=== PATIENT | female | born 1995 | race Hispanic/Latino ===

== ENCOUNTER 2016-11-01 20:37 | Emergency (ER) | payer SELFPAY ==
[2016-11-01 21:01] VITALS: BP 120/66; PULSE 79; RESP 18; TEMP 98.6; O2SAT 100
--- NOTE | 2016-11-01 21:31 | ED PDOC ---
HPI: Dental Pain/Injury Time Seen by Provider: 11/01/16 21:04 Chief Complaint (Nursing): Dental Pain Chief Complaint (Provider): Swelling of frenulum piercing site History Per: Patient History/Exam Limitations: no limitations Onset/Duration Of Symptoms: Days (7) Current Symptoms Are (Timing): Still Present Additional History Per: Patient Additional Complaint(s): The pt is a 21yo female, presents to ED for evaluation of pain and swelling to frenulum piercing on her tongue. Pt states she has had the piercing for 5 years and never tried to remove it until now. She denies any trauma to the site, denies associated fever or chills. Offers no additional medical complaints. Past Medical History Reviewed: Historical Data, Nursing Documentation, Vital Signs Vital Signs: Last Vital Signs Temp 98.6 F 11/01/16 20:58 Pulse 79 11/01/16 20:58 Resp 18 11/01/16 20:58 BP 120/66 11/01/16 20:58 Pulse Ox 100 11/01/16 20:58 - Medical History PMH: No Chronic Diseases - Surgical History Surgical History: No Surg Hx - Family History Family History: States: Unknown Family Hx - Home Medications Home Medications: Ambulatory Orders Medication Instructions Recorded Amoxicillin/Clavulanate [Augmentin 1 tab PO BID #20 tab 11/01/16 500 MG-125 MG] Fluconazole [Diflucan] 150 mg PO ONCE #1 tab 11/01/16 Naproxen [Naprosyn] 500 mg PO BID PRN #30 tab 11/01/16 - Allergies Allergies/Adverse Reactions: Allergies Allergy/AdvReac Type Severity Reaction Status Date / Time sulfamethoxazole Allergy RASH Verified 11/01/16 21:01 [From Bactrim] trimethoprim [From Bactrim] Allergy RASH Verified 11/01/16 21:01 Review of Systems ROS Statement: Except As Marked, All Systems Reviewed And Found Negative Constitutional: Negative for: Fever ENT: Positive for: Other (swollen site of frenulum piercing) Physical Exam - Reviewed Nursing Documentation Reviewed: Yes Vital Signs Reviewed: Yes - Physical Exam Appears: Positive for: Well, Non-toxic, No Acute Distress Head Exam: Positive for: ATRAUMATIC, NORMAL INSPECTION, NORMOCEPHALIC Skin: Positive for: Normal Color, Warm, DRY Eye Exam: Positive for: EOMI, Normal appearance, PERRL ENT: Positive for: Other (bar piercing noted to frenulum of tongue with mild swelling; moist mucus membranes) Neck: Positive for: Normal Respiratory: Negative for: Respiratory Distress Neurologic/Psych: Positive for: Alert, Oriented - ECG O2 Sat by Pulse Oximetry: 100 (RA) Pulse Ox Interpretation: Normal Medical Decision Making Medical Decision Making: Time: 2128 Impression: Irritated frenulum piercing Plan: -- Verbal consent for piercing removal obtained. Informed if provider is unable to remove piercing, pt has to follow up with a surgeon for further care. Time: 1944 PA was unable to remove piercing. Pt given referrals and advised to follow up for further eval. Pt tolerated procedure well. Case d/w Dr. Elizondo and states pt. can f[place] [facility] [place]. Pt given Rx antibiotics and advised to complete full course. Toradol 15mg IM, Augmentin 500mg PO given. Scribe Attestation: Documented by Ashley Hilliard acting as a scribe for EMILY Vasquez Provider Attestation: All medical record entries made by the Scribe were at my direction and personally dictated by me. I have reviewed the chart and agree that the record accurately reflects my personal performance of the history, physical exam, medical decision making, and the department course for this patient. I have also personally directed, reviewed, and agree with the discharge instructions and disposition. Disposition - Clinical Impression Clinical Impression: Foreign body of tongue - Patient ED Disposition Is Patient to be Admitted: No - Disposition Referrals: [facility] [Outside] Addison Yu MD [Staff Provider] - Melisa Harris DMD [Staff Provider] - Disposition: Routine/Home Disposition Time: 22:10 Condition: STABLE Additional Instructions: FOLLOW UP WITH DR. HARRIS (OMFS) OR DR. YU (ENT) FOR REMOVAL OF PIERCING. RETURN TO ED IF FEVER DEVELOPS OR SYMPTOMS WORSEN. Prescriptions: Amoxicillin/Clavulanate [Augmentin 500 MG-125 MG] 1 tab PO BID #20 tab Fluconazole [Diflucan] 150 mg PO ONCE #1 tab Naproxen [Naprosyn] 500 mg PO BID PRN #30 tab PRN Reason: Pain Instructions: Foreign Body in Pharynx (ED) Forms: [employer] (Danish) Print Language: [place]
[2016-11-01] MEDS ORDERED: Amoxicillin-Clav 500-125 mg Tab PO STA (21:47)
[2016-11-01] MEDS ORDERED: Amoxicillin-Clav 875-125 mg Tab PO ONE (21:52)
[2016-11-01] MEDS ORDERED: Amoxicillin-Clav 875-125 mg Tab PO STA (21:54)
== END 2016-11-01 22:29 | disposition home or self-care (01) ==
LOC: H.ER 20:37
DX: T18.0XXA Foreign body in mouth, initial encounter (principal); X78.8XXA Intentional self-harm by other sharp object, initial encounter; Y93.9 Activity, unspecified
CPT/HCPCS: 81025; 96372; 99281; J1885

== ENCOUNTER 2017-02-01 05:53 | Emergency (ER) | payer OTHER ==
[2017-02-01 06:08] VITALS: BP 102/57; RESP 16; TEMP 98.7; O2SAT 98
[2017-02-01] MEDS ORDERED: Oxycodone/Acetaminophen 5/325 mg Tab PO ONE (06:17)
[2017-02-01] MEDS ORDERED: Oxycodone/Acetaminophen 5/325 mg Tab ONE (06:30)
--- NOTE | 2017-02-01 06:36 | ED PDOC ---
HPI: Skin/Bite Injury Time Seen by Provider: 02/01/17 06:13 Chief Complaint (Nursing): Abnormal Skin Integrity Chief Complaint (Provider): Abscess History Per: Patient History/Exam Limitations: no limitations Onset/Duration Of Symptoms: Days Current Symptoms Are (Timing): Still Present Quality Of Symptoms: Painful Additional Complaint(s): Patient is a 21 y/o female with no past medical history, who presents to the ED complaining of an abscess on the left buttock cheek for several days. Patient notes that she shaves in that region and that the abscess is painful, especially to touch. She denies any fever, vomiting, diarrhea, or any further symptoms. PMD: Provider TBRadha Past Medical History Reviewed: Historical Data, Nursing Documentation, Vital Signs Vital Signs: Last Vital Signs Temp 98.7 F 02/01/17 06:06 Pulse 89 02/01/17 07:07 Resp 16 02/01/17 06:06 BP 102/57 L 02/01/17 06:06 Pulse Ox 98 02/01/17 06:54 - Medical History PMH: No Chronic Diseases - Surgical History Surgical History: No Surg Hx - Family History Family History: States: No Known Family Hx, Unknown Family Hx - Social History Current smoker - smoking cessation education provided: No Alcohol: None Drugs: Denies - Home Medications Home Medications: Ambulatory Orders Medication Instructions Recorded Amoxicillin/Clavulanate [Augmentin 1 tab PO BID #20 tab 11/01/16 500 MG-125 MG] Fluconazole [Diflucan] 150 mg PO ONCE #1 tab 11/01/16 Naproxen [Naprosyn] 500 mg PO BID PRN #30 tab 11/01/16 Clindamycin [Cleocin] 300 mg PO QID #28 cap 02/01/17 Ibuprofen [Motrin] 600 mg PO Q6H PRN #20 tab 02/01/17 oxyCODONE/Acetaminophen [Percocet 1 tab PO Q6H PRN #5 tab 02/01/17 5/325 mg Tab] - Allergies Allergies/Adverse Reactions: Allergies Allergy/AdvReac Type Severity Reaction Status Date / Time sulfamethoxazole Allergy RASH Verified 02/01/17 06:05 [From Bactrim] trimethoprim [From Bactrim] Allergy RASH Verified 02/01/17 06:05 Review of Systems ROS Statement: Except As Marked, All Systems Reviewed And Found Negative Constitutional: Negative for: Fever Gastrointestinal: Negative for: Vomiting, Diarrhea Skin: Positive for: Other (Abscess on left buttock cheek) Physical Exam - Reviewed Nursing Documentation Reviewed: Yes Vital Signs Reviewed: Yes - Physical Exam Appears: Positive for: Non-toxic, No Acute Distress Head Exam: Positive for: ATRAUMATIC, NORMOCEPHALIC Skin: Positive for: Warm, Dry Cardiovascular/Chest: Positive for: Regular Rate, Rhythm. Negative for: Murmur Respiratory: Positive for: Normal Breath Sounds. Negative for: Respiratory Distress Comments: left buttock quarter size of induration, no fluctuance, erythema around area of induration, tender to palpation - ECG O2 Sat by Pulse Oximetry: 98 (RA) Pulse Ox Interpretation: Normal Medical Decision Making Medical Decision Making: Time: 06:17 Initial Impression: Abscess on left buttock cheek Initial Plan: -Ibuprofen 600mg PO -Percocet 5/325 mg 1 tab PO Time: 06:31 -Patient reports relief in ED after taking above drugs -Patient instructed to use warm compresses at home and antibiotics. as abscess not ready yet for I and D. Follow up with primary care physician or ED if and when the area becomes more fluctuant and ready for incision and drainage procedure -Patient condition improved, ready for discharge home Clinical Impression: Abscess Upon provider evaluation patient is medically stable, and requires no further treatment in the ED at this time. Patient will be discharged with Rx for Clindamycin 300mg, Ibuprofen 600mg. Counseling was provided and all questions were answered regarding diagnosis and need for follow up with primary care physician and return to ED when abscess becomes more fluctuant and ready for incision and drainage. There is agreement to discharge plan. Return if symptoms persist or worsen. Scribe Attestation: Documented by González Guillaume, acting as a scribe for Jimy Casiano MD Provider Scribe Attestation: All medical record entries made by the Scribe were at my direction and personally dictated by me. I have reviewed the chart and agree that the record accurately reflects my personal performance of the history, physical exam, medical decision making, and the department course for this patient. I have also personally directed, reviewed, and agree with the discharge instructions and disposition. Disposition - Clinical Impression Clinical Impression: Abscess - Patient ED Disposition Is Patient to be Admitted: No Counseled Patient/Family Regarding: Studies Performed, Diagnosis, Need For Followup - Disposition Referrals: [facility] [Outside] [facility] [Outside] Disposition: Routine/Home Disposition Time: 06:05 Condition: IMPROVED Additional Instructions: follow up with your primary doctor in 1-2 days or in the ER return to the ED with any worsening or concerning symptoms take antibiotics as instructed use warm compresses Prescriptions: Clindamycin [Cleocin] 300 mg PO QID #28 cap Ibuprofen [Motrin] 600 mg PO Q6H PRN #20 tab PRN Reason: Pain, Moderate (4-7) oxyCODONE/Acetaminophen [Percocet 5/325 mg Tab] 1 tab PO Q6H PRN #5 tab PRN Reason: Pain, Moderate (4-7) Instructions: Abscess (ED) Forms: [employer] (Bengali), [facility] ED School/Work Excuse
[2017-02-01 07:12] VITALS: PULSE 89
== END 2017-02-01 07:12 | disposition home or self-care (01) ==
LOC: H.ER 05:53
DX: L02.31 Cutaneous abscess of buttock (principal)

== ENCOUNTER 2017-02-03 04:13 | Emergency (ER) | payer OTHER ==
[2017-02-03] MEDS ORDERED: Sodium Chloride 0.9% 1,000 ML IV STA (04:41)
--- NOTE | 2017-02-03 04:43 | ED PDOC ---
HPI: Skin/Bite Injury Time Seen by Provider: 02/03/17 04:34 Chief Complaint (Nursing): Abnormal Skin Integrity Chief Complaint (Provider): abscess History Per: Patient History/Exam Limitations: no limitations Onset/Duration Of Symptoms: Days (3) Current Symptoms Are (Timing): Still Present Location Of Injury: Left: Buttock Quality Of Symptoms: Painful Additional History Per: Patient Additional Complaint(s): 22 y/o female presents with left buttock pain x 3 days. Patient seen 2 days ago for same and diagnosed with buttock abscess and given Clindamycin and Percocet and Ibuprofen. Patient notes no improvement of pain with medications, and notes she has been vomiting since yesterday and is not sure the antibiotics are staying down. Associated bodyaches, chills. Denies drainage, numbness/ weakness. Past Medical History Reviewed: Historical Data, Nursing Documentation, Vital Signs Vital Signs: Last Vital Signs Temp 98.1 F 02/03/17 06:36 Pulse 100 H 02/03/17 06:36 Resp 16 02/03/17 06:36 BP 105/52 L 02/03/17 06:36 Pulse Ox 95 02/03/17 06:36 - Medical History PMH: No Chronic Diseases - Surgical History Surgical History: No Surg Hx - Family History Family History: States: Unknown Family Hx - Home Medications Home Medications: Ambulatory Orders Medication Instructions Recorded Amoxicillin/Clavulanate [Augmentin 1 tab PO BID #20 tab 11/01/16 500 MG-125 MG] Fluconazole [Diflucan] 150 mg PO ONCE #1 tab 11/01/16 Naproxen [Naprosyn] 500 mg PO BID PRN #30 tab 11/01/16 Clindamycin [Cleocin] 300 mg PO QID #28 cap 02/01/17 Ibuprofen [Motrin] 600 mg PO Q6H PRN #20 tab 02/01/17 oxyCODONE/Acetaminophen [Percocet 1 tab PO Q6H PRN #5 tab 02/01/17 5/325 mg Tab] - Allergies Allergies/Adverse Reactions: Allergies Allergy/AdvReac Type Severity Reaction Status Date / Time sulfamethoxazole Allergy RASH Verified 02/01/17 06:05 [From Bactrim] trimethoprim [From Bactrim] Allergy RASH Verified 02/01/17 06:05 Review of Systems ROS Statement: Except As Marked, All Systems Reviewed And Found Negative Skin: Positive for: Lesions (left buttock abscess) Physical Exam - Reviewed Nursing Documentation Reviewed: Yes Vital Signs Reviewed: Yes - Physical Exam Appears: Positive for: Well, Non-toxic, Uncomfortable Head Exam: Positive for: ATRAUMATIC, NORMAL INSPECTION, NORMOCEPHALIC Skin: Positive for: Normal Color Eye Exam: Positive for: Normal appearance ENT: Positive for: Normal ENT Inspection Cardiovascular/Chest: Positive for: Regular Rate, Rhythm Respiratory: Positive for: Normal Breath Sounds Gastrointestinal/Abdominal: Positive for: Normal Exam Back: Positive for: Other (left inner gluteal abscess with surrounding erythema. Tender to touch. Mild central fluctuance) Extremity: Positive for: Normal ROM Neurologic/Psych: Positive for: Alert, Oriented - Laboratory Results Result Diagrams: 02/03/17 05:33 02/03/17 05:33 - ECG O2 Sat by Pulse Oximetry: 100 - Progress ED Course And Treament: Verbal consent given by patient for nitrous oxide administration. Area cleaned with alcohol prep pad. Area anesthesized with 1% lidocaine. Incision made using #11 blade with large amount of prurulent drainage; culture obtained. Area packed with packing, pressure bandage applied. labs, IV fluids, IV zofran, PO tylenol ordered On re-eval, patient tolerating PO. Vitals improved. Patient was advised to continue current medications. Wound check/packing removal 48 hours. Return to ED sooner for worsening/concerning symptoms. Disposition - Clinical Impression Clinical Impression: Pilonidal cyst with abscess - Patient ED Disposition Is Patient to be Admitted: No Counseled Patient/Family Regarding: Studies Performed, Diagnosis, Need For Followup - Disposition Disposition: Routine/Home Disposition Time: 06:00 Condition: STABLE Additional Instructions: Continue current medications. Follow up in 48 hours for wound check/packing removal. Return to ED sooner for worsening/concerning symptoms. Instructions: Abscess Incision and Drainage (ED) Forms: [facility] ED School/Work Excuse
[2017-02-03] MEDS ORDERED: Lidocaine 1% Inj (20ml) IJ ONE (04:44)
[2017-02-03 05:42] LABS: BASO # 0.1 K/uL (0.0-0.2); BASO % 0.4 % (0.0-2.0); EOS % 0.3 % (0.0-4.0); HEMATOCRIT 38.2 % (34.0-47.0); LYMPH # 1.2 K/uL (1.0-4.3); LYMPH % 7.6 % (20.0-40.0); MEAN CELL VOLUME 87.3 fl (81.0-99.0); MEAN CORPUSCULAR HEMOGLOBIN 29.5 pg (27.0-31.0); MEAN CORPUSCULAR HGB CONC 33.8 g/dL (33.0-37.0); MEAN PLATELET VOLUME 9.1 fl (7.2-11.7); MONO % 13.5 % (0.0-10.0); NEUT # 11.8 K/uL (1.8-7.0); NEUT % 78.2 % (50.0-75.0); NRBC % 0.1 % (0.0-0.0); PLATELET COUNT 181 K/uL (130-400); RED CELL DISTRIBUTION WIDTH 12.9 % (11.5-14.5); WHITE BLOOD COUNT 15.1 K/uL (4.8-10.8)
[2017-02-03 05:46] LABS: ALB/GLOB RATIO 1.4 (1.0-2.1); ALKALINE PHOSPHATASE 77 U/L (38-126); ALT/SGPT 22 U/L (9-52); AST/SGOT 17 U/L (14-36); BILIRUBIN,TOTAL 1.4 mg/dl (0.2-1.3); BLOOD UREA NITROGEN 11 mg/dl (7-17); CALCIUM 9.3 mg/dL (8.4-10.2); CARBON DIOXIDE 23 mmol/L (22-30); CHLORIDE 104 mmol/L (98-107); GFR AFRICAN-AMERICAN > 60; GLUCOSE,RANDOM 113 mg/dL (65-105); POTASSIUM 3.6 MMOL/L (3.6-5.0); SODIUM 140 mmol/l (132-148); TOTAL PROTEIN 7.3 G/DL (6.3-8.2)
--- NOTE | 2017-02-03 05:56 | ED PDOC ---
- Laboratory Results Result Diagrams: 02/03/17 05:33 - ECG O2 Sat by Pulse Oximetry: 100 Medical Decision Making Medical Decision Makin Patient is signed out to me from DONNA Pandya pending blood work. Scribe Attestation: Documented by Amelia Flores acting as a scribe for Jose Hahn MD. Scribe Attestation: All medical record entries made by the Scribe were at my direction and personally dictated by me. I have reviewed the chart and agree that the record accurately reflects my personal performance of the history, physical exam, medical decision making, and the department course for this patient. I have also personally directed, reviewed, and agree with the discharge instructions and disposition. Disposition - Clinical Impression Clinical Impression: Pilonidal cyst with abscess - Disposition Condition: STABLE Additional Instructions: Continue current medications. Follow up in 48 hours for wound check/packing removal. Return to ED sooner for worsening/concerning symptoms. Instructions: Abscess Incision and Drainage (ED)
[2017-02-03 06:37] VITALS: BP 105/52; PULSE 100; RESP 16; TEMP 98.1
[2017-02-03 09:48] LABS: EOSINOPHIL 1 % (0-7); NEUTROPHIL 80 % (42-75); REACTIVE LYMPHOCYTES 1 % (0-0); TOTAL CELLS COUNTED 100
[2017-02-03 09:49] LABS: GIANT PLATELETS PRESENT; PLATELET CLUMPS PRESENT
[2017-02-03 21:37] VITALS: O2SAT 100
== END 2017-02-03 06:39 | disposition home or self-care (01) ==
LOC: H.ER 04:13
DX: L02.31 Cutaneous abscess of buttock (principal)
CPT/HCPCS: 10060; 80053; 81025; 83605; 85025; 87040; 87070; 96360; 99285; J2405; J7040

== ENCOUNTER 2017-02-05 06:37 | Emergency (ER) | payer OTHER ==
[2017-02-05 06:50] VITALS: BMI 27.4
[2017-02-05 06:53] VITALS: BP 115/68; PULSE 82; RESP 16; TEMP 98.1; O2SAT 100
--- NOTE | 2017-02-05 07:19 | ED PDOC ---
HPI: Skin/Bite Injury Time Seen by Provider: 02/05/17 07:02 Chief Complaint (Nursing): Abnormal Skin Integrity Chief Complaint (Provider): Abscess Packing Removal History Per: Patient History/Exam Limitations: no limitations Onset/Duration Of Symptoms: Days (x2) Current Symptoms Are (Timing): Still Present Additional Complaint(s): Elvia Do is a 22 year old female presenting to the ED for an evaluation of an abscess packing to her left buttocks occurring 2 days prior to arrival in this ED. The patient states she is here for packing removal, but reports feeling discharge present. PMD: TBD Past Medical History Reviewed: Historical Data, Nursing Documentation, Vital Signs Vital Signs: Last Vital Signs Temp 98.1 F 02/05/17 06:50 Pulse 82 02/05/17 06:50 Resp 16 02/05/17 06:50 BP 115/68 02/05/17 06:50 Pulse Ox 100 02/05/17 07:24 - Medical History PMH: No Chronic Diseases - Family History Family History: States: Unknown Family Hx - Social History Current smoker - smoking cessation education provided: No Ex-Smoker (has not smoked in the last 12 months): No Alcohol: None Drugs: Denies - Home Medications Home Medications: Ambulatory Orders Medication Instructions Recorded Amoxicillin/Clavulanate [Augmentin 1 tab PO BID #20 tab 11/01/16 500 MG-125 MG] Fluconazole [Diflucan] 150 mg PO ONCE #1 tab 11/01/16 Naproxen [Naprosyn] 500 mg PO BID PRN #30 tab 11/01/16 Clindamycin [Cleocin] 300 mg PO QID #28 cap 02/01/17 Ibuprofen [Motrin] 600 mg PO Q6H PRN #20 tab 02/01/17 oxyCODONE/Acetaminophen [Percocet 1 tab PO Q6H PRN #5 tab 02/01/17 5/325 mg Tab] - Allergies Allergies/Adverse Reactions: Allergies Allergy/AdvReac Type Severity Reaction Status Date / Time sulfamethoxazole Allergy RASH Verified 02/05/17 06:49 [From Bactrim] trimethoprim [From Bactrim] Allergy RASH Verified 02/05/17 06:49 Review of Systems ROS Statement: Except As Marked, All Systems Reviewed And Found Negative Musculoskeletal: Positive for: Other (abscess packing removal ) Physical Exam - Reviewed Nursing Documentation Reviewed: Yes Vital Signs Reviewed: Yes - Physical Exam Appears: Positive for: Non-toxic, No Acute Distress Head Exam: Positive for: ATRAUMATIC, NORMOCEPHALIC Back: Positive for: Other (Left buttock abscess: no erythema; mild induration; tenderness present; continuous leakage of purulent material coming out of abscess) Neurologic/Psych: Positive for: Alert, Oriented - ECG O2 Sat by Pulse Oximetry: 100 (RA) Pulse Ox Interpretation: Normal Medical Decision Making Medical Decision Making: Time: 07:02 Impression: Abscess packing removal Plan: * Will repack abscess due to continuous leakage of purulent material coming out of abscess. Scribe Attestation: Documented by Allie Persaud, acting as a scribe for Reina Morales MD. Provider Scribe Attestation: All medical record entries made by the Scribe were at my direction and personally dictated by me. I have reviewed the chart and agree that the record accurately reflects my personal performance of the history, physical exam, medical decision making, and the department course for this patient. I have also personally directed, reviewed, and agree with the discharge instructions and disposition. continuous flow of purulent material after packing is removed. wound repacked with 1/4 in strips. dressing applied. followup in 2 days in the ER. Disposition - Clinical Impression Clinical Impression: Abscess, Encounter for wound care - Patient ED Disposition Is Patient to be Admitted: No Counseled Patient/Family Regarding: Diagnosis, Need For Followup - Disposition Disposition Time: 07:27 Condition: IMPROVED Additional Instructions: Return to the ER for wound check in 2 days. May shower with dressing in place. Gently clean wound site and apply new dressings after showering. Continue antibiotics as prescribed. Take Tylenol and/or Motrin regularly for pain and discomfort. Instructions: Abscess Incision and Drainage (ED) Forms: [employer] (Wolof) - POA Present On Arrival: None
== END 2017-02-05 07:43 | disposition home or self-care (01) ==
LOC: H.ER 06:37
DX: Z48.00 Encounter for change or removal of nonsurgical wound dressing (principal)